=== PATIENT | female | born 1995 | race Caucasian/White ===

== ENCOUNTER 2016-06-28 03:56 | Emergency (ER) | payer BC, OTHER ==
[~2016-06-28 03:56] MED LIST: /VITACHEW PO; BENZ200C44 PO; CLON0.5T PO; DRON5CAP6 PO; IMPL68IM SC; LAMI25TA PO; No home meds; TOPI50TA4 PO
[2016-06-28 04:45] LABS: MEAN CORPUSCULAR HGB CONC 34.6 g/dl (32.0-36.5); MEAN CORPUSCULAR VOLUME 89.5 fl (80.0-96.0); RED CELL DISTRIBUTION WIDTH 12.7 % (11.5-14.5); WHITE BLOOD COUNT 14.3 K/mm3 (4.0-10.0)
[2016-06-28 04:52] LABS: CONTROL LINE HCG INT CTR LINE PRESENT
[2016-06-28 04:55] LABS: AMPHETAMINES LEVEL URINE NEGATIVE (NEGATIVE); BENZODIAZEPINES URINE NEGATIVE (NEGATIVE); COCAINE METABOLITE URINE NEGATIVE (NEGATIVE); METHADONE URINE NEGATIVE (NEGATIVE); OPIATES URINE NEGATIVE (NEGATIVE)
[2016-06-28 04:56] LABS: CONTROL LINE INT CTR LINE PRESENT; TRICYCLIC ANTIDEPRESS URINE NEGATIVE (NEGATIVE)
[2016-06-28 05:07] LABS: ALBUMIN 4.3 GM/DL (3.2-5.2); ALBUMIN/GLOBULIN RATIO 1.26 (1.00-1.93); ALKALINE PHOSPHATASE 119 U/L (45-117); ALT/SGPT 17 U/L (12-78); ANION GAP 12 MEQ/L (8-16); AST/SGOT 11 U/L (15-37); BILIRUBIN,DIRECT 0.1 MG/DL (0.0-0.2); BILIRUBIN,TOTAL 0.4 MG/DL (0.2-1.0); BLOOD UREA NITROGEN 9 MG/DL (7-18); CALCIUM LEVEL 9.1 MG/DL (8.5-10.1); CARBON DIOXIDE LEVEL 22 MEQ/L (21-32); CHLORIDE LEVEL 112 MEQ/L (98-107); CREATININE FOR GFR 0.83 MG/DL (0.55-1.02); GLOMERULAR FILTRATION RATE > 60.0 (>60); GLUCOSE, FASTING 102 MG/DL (70-105); POTASSIUM SERUM 3.6 MEQ/L (3.5-5.1); SODIUM LEVEL 146 MEQ/L (136-145); TOTAL PROTEIN 7.7 GM/DL (6.4-8.2)
--- NOTE | 2016-06-28 07:40 | EDDOCDS ---
Physician Documentation [facility] Name: Ashleigh Garcia Age: 21 yrs Sex: Female : 1995 Arrival Date: 06/28/2016 Time: 03:56 Bed BHU1 Private MD: Disposition: 06/28/16 06:22 Discharged to Home/Self Care. Impression: Alcohol abuse with intoxication, Inadequate social skills, not elsewhere classified, Problems related to social environment, Cannabis abuse. - Condition is Stable. - Medication Reconciliation, Local Pharmacy Hours form. - Follow up: As provided by PFS Referral list; When: Call to arrange an appointment; Reason: Recheck today's complaints. - Problem is an ongoing problem. - Symptoms have improved. Historical: - Allergies: No known drug Allergies; - Home Meds: 1. Adderall XR Oral once daily has been out x 3 months 2. Xanax Oral as needed has been out x 3 months - PMHx: ADHD; Anxiety; - PSHx: none; - Social history: Smoking status: Patient states was never smoker of tobacco. Patient uses alcohol reports drinking 3 liquor beverages tonight . No barriers to communication noted, The patient speaks fluent [place], Speaks appropriately for age. - Family history: Not pertinent. - : The pt / caregiver states he / she is not on anticoagulants. Home medication list is obtained from the patient. - Exposure Risk Screening:: None identified. 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 3 in. (160.02 cm); Pain 0/10; 07:28 BP 126 / 78; Pulse 110; Resp 18; Temp 98.0; Pulse Ox 98% ; Pain 5/10; hs1 04:04 Body Mass Index 20.37 (52.16 kg, 160.02 cm) jlm MDM: 04:40 Consult PFS/PSA/Cyber Incident Analyst ordered. slm 04:40 Consult PFS/PSA/Cyber Incident Analyst: Patient's case requires discussion with on-call slm Psychiatrist ordered. 04:40 PSA/PFS to call Nursing Personal Protection Specialist, to enter patient data on [place] Safe [place] if patient slm involuntarily admitted or transferred for SI or HI ordered. 04:40 Confirm accurate psychiatric medication list and times of last dosage ordered. slm 04:40 Detain Pt Until Medically/PFS Cleared ordered. slm 04:41 Acetaminophen Level Ordered. EDMS 04:41 Basic Metabolic Profile Ordered. EDMS 04:41 Complete Blood Count Ordered. EDMS 04:41 Drug Eval Toxicology ED Only Ordered. EDMS 04:41 Ethyl Alcohol (ethanol) Ordered. EDMS 04:41 Liver Profile Ordered. EDMS 04:41 Salicylate Level Ordered. EDMS 04:41 Thyroid Stimulating Hormone Ordered. EDMS 04:43 HCG,Serum Qualitative Ordered. EDMS 04:59 Complete Blood Count Reviewed. cs11 04:59 Drug Eval Toxicology ED Only Reviewed. cs11 04:59 HCG,Serum Qualitative Reviewed. cs11 05:07 REGULAR DIET PLASTIC EASTMAN+DIET ordered. EDMS 05:15 Financial registration complete. hs2 05:20 [facility] Payment Agreement was scanned into [employer] and attached to record. hs2 05:32 Acetaminophen Level Reviewed. cs11 05:32 Basic Metabolic Profile Reviewed. cs11 05:32 Ethyl Alcohol (ethanol) Reviewed. cs11 05:32 Liver Profile Reviewed. cs11 05:32 Salicylate Level Reviewed. cs11 05:32 Thyroid Stimulating Hormone Reviewed. cs11 07:12 Consult PFS/PSA/Cyber Incident Analyst complete. ca Signatures: Dispatcher [employer] EDMS Tresa Sandoval, PSA PSA ca Tequila Teran, RN RN hs1 Josef Pinto, DO cs11 Pina Larios LPN LPN slm Nunez, NikkoleRN RN nn1 Jazmin Pelaez, Reg Reg hs2 The chart was reviewed and I authenticate all verbal orders and agree with the evaluation and treatment provided.Attachments: 05:20 [facility] Payment Agreement hs2 MTDD
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
--- NOTE | 2016-06-30 08:41 | EDDOCDS ---
Physician Documentation [facility] Name: Ashleigh Garcia Age: 21 yrs Sex: Female : 1995 Arrival Date: 06/28/2016 Time: 03:56 Bed BHU1 Private MD: Disposition: 06/28/16 06:22 Discharged to Home/Self Care. Impression: Alcohol abuse with intoxication, Inadequate social skills, not elsewhere classified, Problems related to social environment, Cannabis abuse. - Condition is Stable. - Medication Reconciliation, Local Pharmacy Hours form. - Follow up: As provided by PFS Referral list; When: Call to arrange an appointment; Reason: Recheck today's complaints. - Problem is an ongoing problem. - Symptoms have improved. Historical: - Allergies: No known drug Allergies; - Home Meds: 1. Adderall XR Oral once daily has been out x 3 months 2. Xanax Oral as needed has been out x 3 months - PMHx: ADHD; Anxiety; - PSHx: none; - Social history: Smoking status: Patient states was never smoker of tobacco. Patient uses alcohol reports drinking 3 liquor beverages tonight . No barriers to communication noted, The patient speaks fluent [place]ese, Speaks appropriately for age. - Family history: Not pertinent. - : The pt / caregiver states he / she is not on anticoagulants. Home medication list is obtained from the patient. - Exposure Risk Screening:: None identified. 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 3 in. (160.02 cm); Pain 0/10; 07:28 BP 126 / 78; Pulse 110; Resp 18; Temp 98.0; Pulse Ox 98% ; Pain 5/10; hs1 04:04 Body Mass Index 20.37 (52.16 kg, 160.02 cm) jlm MDM: 04:40 Consult PFS/PSA/Armhole Presser ordered. slm 04:40 Consult PFS/PSA/Armhole Presser: Patient's case requires discussion with on-call slm Psychiatrist ordered. 04:40 PSA/PFS to call Nursing Oyster Grader, to enter patient data on [place] Safe [place] if patient slm involuntarily admitted or transferred for SI or HI ordered. 04:40 Confirm accurate psychiatric medication list and times of last dosage ordered. slm 04:40 Detain Pt Until Medically/PFS Cleared ordered. slm 04:41 Acetaminophen Level Ordered. EDMS 04:41 Basic Metabolic Profile Ordered. EDMS 04:41 Complete Blood Count Ordered. EDMS 04:41 Drug Eval Toxicology ED Only Ordered. EDMS 04:41 Ethyl Alcohol (ethanol) Ordered. EDMS 04:41 Liver Profile Ordered. EDMS 04:41 Salicylate Level Ordered. EDMS 04:41 Thyroid Stimulating Hormone Ordered. EDMS 04:43 HCG,Serum Qualitative Ordered. EDMS 04:59 Complete Blood Count Reviewed. cs11 04:59 Drug Eval Toxicology ED Only Reviewed. cs11 04:59 HCG,Serum Qualitative Reviewed. cs11 05:07 REGULAR DIET PLASTIC EASTMAN+DIET ordered. EDMS 05:15 Financial registration complete. hs2 05:20 [facility] Payment Agreement was scanned into [employer] and attached to record. hs2 05:32 Acetaminophen Level Reviewed. cs11 05:32 Basic Metabolic Profile Reviewed. cs11 05:32 Ethyl Alcohol (ethanol) Reviewed. cs11 05:32 Liver Profile Reviewed. cs11 05:32 Salicylate Level Reviewed. cs11 05:32 Thyroid Stimulating Hormone Reviewed. cs11 07:12 Consult PFS/PSA/Armhole Presser complete. ca 08:57 T-Sheet-- Draft Copy was scanned into [employer] and attached to record. [facility] Signatures: Dispatcher [employer] EDMS Tresa Sandoval, PSA PSA ca Tequila Teran RN RN hs1 Josef Pinto, DO DO cs11 Pina Larios LPN LPN slm Nunez, NikkoleRN RN nn1 Jazmin Pelaez, Reg Reg hs2 Zarina Abrams [facility] The chart was reviewed and I authenticate all verbal orders and agree with the evaluation and treatment provided.Attachments: 05:20 [facility] [place] Agreement hs2 08:57 T-Sheet-- Draft Copy [facility] Chart Complete MTDD
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
--- NOTE | 2016-06-30 08:41 | EDDOCDS ---
Physician Documentation [facility] Name: Ashleigh Garcia Age: 21 yrs Sex: Female : 1995 Arrival Date: 06/28/2016 Time: 03:56 Bed BHU1 Private MD: Disposition: 06/28/16 06:22 Discharged to Home/Self Care. Impression: Alcohol abuse with intoxication, Inadequate social skills, not elsewhere classified, Problems related to social environment, Cannabis abuse. - Condition is Stable. - Medication Reconciliation, Local Pharmacy Hours form. - Follow up: As provided by PFS Referral list; When: Call to arrange an appointment; Reason: Recheck today's complaints. - Problem is an ongoing problem. - Symptoms have improved. Historical: - Allergies: No known drug Allergies; - Home Meds: 1. Adderall XR Oral once daily has been out x 3 months 2. Xanax Oral as needed has been out x 3 months - PMHx: ADHD; Anxiety; - PSHx: none; - Social history: Smoking status: Patient states was never smoker of tobacco. Patient uses alcohol reports drinking 3 liquor beverages tonight . No barriers to communication noted, The patient speaks fluent Paraguayan, Speaks appropriately for age. - Family history: Not pertinent. - : The pt / caregiver states he / she is not on anticoagulants. Home medication list is obtained from the patient. - Exposure Risk Screening:: None identified. RN PEDIATRIC: 06/28 07:09 LMP 06/03/2016 mlb1 Vital Signs: 04:04 BP 142 / 88; Pulse 115; Resp 18; Temp 97; Pulse Ox 97% ; Weight 52.16 kg / 114.99 lbs; jlm Height 5 ft. 3 in. (160.02 cm); Pain 0/10; 07:28 BP 126 / 78; Pulse 110; Resp 18; Temp 98.0; Pulse Ox 98% ; Pain 5/10; hs1 04:04 Body Mass Index 20.37 (52.16 kg, 160.02 cm) jlm MDM: 04:40 Consult PFS/PSA/Machine Packaging Technician ordered. slm 04:40 Consult PFS/PSA/Machine Packaging Technician: Patient's case requires discussion with on-call slm Psychiatrist ordered. 04:40 PSA/PFS to call Nursing [employer] Portal Consultant, to enter patient data on [place] Safe Act if patient slm involuntarily admitted or transferred for SI or HI ordered. 04:40 Confirm accurate psychiatric medication list and times of last dosage ordered. slm 04:40 Detain Pt Until Medically/PFS Cleared ordered. slm 04:41 Acetaminophen Level Ordered. EDMS 04:41 Basic Metabolic Profile Ordered. EDMS 04:41 Complete Blood Count Ordered. EDMS 04:41 Drug Eval Toxicology ED Only Ordered. EDMS 04:41 Ethyl Alcohol (ethanol) Ordered. EDMS 04:41 Liver Profile Ordered. EDMS 04:41 Salicylate Level Ordered. EDMS 04:41 Thyroid Stimulating Hormone Ordered. EDMS 04:43 HCG,Serum Qualitative Ordered. EDMS 04:59 Complete Blood Count Reviewed. cs11 04:59 Drug Eval Toxicology ED Only Reviewed. cs11 04:59 HCG,Serum Qualitative Reviewed. cs11 05:07 REGULAR DIET PLASTIC EASTMAN+DIET ordered. EDMS 05:15 Financial registration complete. hs2 05:20 [facility] Payment Agreement was scanned into [employer] and attached to record. hs2 05:32 Acetaminophen Level Reviewed. cs11 05:32 Basic Metabolic Profile Reviewed. cs11 05:32 Ethyl Alcohol (ethanol) Reviewed. cs11 05:32 Liver Profile Reviewed. cs11 05:32 Salicylate Level Reviewed. cs11 05:32 Thyroid Stimulating Hormone Reviewed. cs11 07:12 Consult PFS/PSA/Machine Packaging Technician complete. ca 08:57 T-Sheet-- Draft Copy was scanned into [employer] and attached to record. [facility] Signatures: Dispatcher [employer] EDMS Tresa Sandoval, PSA PSA ca Tequila Teran RN RN hs1 Josef Pinto, DO DO cs11 Pina Larios LPN LPN slm Nunez, NikkoleRN RN nn1 Jazmin Pelaez, Reg Reg hs2 Zarina [address] [facility] The chart was reviewed and I authenticate all verbal orders and agree with the evaluation and treatment provided.Attachments: 05:20 [place] [place] hs2 08:57 T-Sheet-- Draft Copy [facility] Chart Complete MTDD
== END 2016-06-28 07:39 | disposition home or self-care (01) ==
LOC: M ED 03:56
DX: F10.120 Alcohol abuse with intoxication, uncomplicated (principal); F12.10 Cannabis abuse, uncomplicated; Z73.4 Inadequate social skills, not elsewhere classified; Z60.9 Problem related to social environment, unspecified; F90.9 Attention-deficit hyperactivity disorder, unspecified type; F41.9 Anxiety disorder, unspecified; Z79.899 Other long term (current) drug therapy
CPT/HCPCS: 36415; 80048; 80076; 80306; 84443; 84703; 85027; 99284; G0480

== ENCOUNTER → 2016-08-17 | Outpatient (REF) | payer OTHER | LOC: M LAB REF 16:27 | PROVIDERS: ATTEND Physician Assistant | DX: J10.1 Influenza due to other identified influenza virus with other respiratory manifestations (principal) ==

== ENCOUNTER 2016-09-10 09:13 | Emergency (ER) | payer OTHER ==
[~2016-09-10] VITALS: Ht 160 cm; Wt 54.0 kg
[2016-09-10] MEDS ORDERED: traMADol 50 MG TAB PO ONE (09:45)
[2016-09-10] MEDS ORDERED: traMADol 50 MG TAB (BULK 4 TAB ED) PO ONE (09:45)
[2016-09-10] MEDS ORDERED: NAPR500T PO (10:19)
[2016-09-10] MEDS ORDERED: AUGM875T27 PO (10:19)
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
[2016-09-10 10:47] VITALS: BP 132/72
== END 2016-09-10 11:23 | disposition home or self-care (01) ==
LOC: M ED 10:06
DX: S67.01XA Crushing injury of right thumb, initial encounter (principal); W22.8XXA Striking against or struck by other objects, initial encounter; Y92.89 Other specified places as the place of occurrence of the external cause; Y93.89 Activity, other specified; Y99.8 Other external cause status; G43.A0 Cyclical vomiting, in migraine, not intractable; Z87.440 Personal history of urinary (tract) infections; F60.3 Borderline personality disorder

== ENCOUNTER 2016-11-05 15:26 | Emergency (ER) | payer OTHER ==
[~2016-11-05] VITALS: Ht 160 cm; Wt 49.9 kg
[~2016-11-05 15:26] MED LIST changes: +AUGM875T27 PO; +NAPR500T PO
[2016-11-05] MEDS ORDERED: NS 1,000 ML IV ONE (15:45)
[2016-11-05] MEDS ORDERED: ONDANSETRON 4 MG ORAL DISINTEGRATING TAB (S0181) PO ONE (15:45)
[2016-11-05] MEDS ORDERED: ACETAMINOPHEN TAB 650MG DOSE (2X325MG) PO ONE (15:45)
[2016-11-05 16:36] LABS: BASO % 0.5 % (0.0-1.0); EOS # 0.2 K/mm3 (0.0-0.50); EOS % 1.9 % (0.0-3.0); LARGE UNSTAINED CELL # 0.2 K/mm3 (0.0-0.4); LYMPH # 1.5 K/mm3 (1.5-6.5); LYMPH % 18.3 % (24.0-44.0); MEAN CORPUSCULAR HEMOGLOBIN 32.3 pg (27.0-33.0); MEAN CORPUSCULAR HGB CONC 35.2 g/dl (32.0-36.5); MEAN CORPUSCULAR VOLUME 91.9 fl (80.0-96.0); MONO # 0.4 K/mm3 (0.0-0.8); MONO % 5.4 % (0.0-5.0); NEUTROPHILS # 5.8 K/mm3 (1.8-7.7); NEUTROPHILS % 71.8 % (36.0-66.0); PLATELET COUNT, AUTOMATED 298 k/mm3 (150-450); RED CELL DISTRIBUTION WIDTH 12.3 % (11.5-14.5)
--- NOTE | 2016-11-05 16:51 | REP ---
Clinical: Dating and viability. Vaginal bleeding. Technique: Transabdominal first trimester obstetrical ultrasound with color Doppler evaluation. Findings: The uterus appears heterogeneous and enlarged measuring greater than 10.7 x 7.9 x 5.2 cm. Single live early intrauterine is appreciated. Gestational sac with yolk sac and pole identified. Buhl-rump length of 3 mm corresponds to 5 weeks 6 days gestational age with estimated date of delivery 07/02/2017 . heart rate equals 104 beats per minute. No gross abnormalities are identified. Impression: Single live early intrauterine at 5 weeks 6 days gestational age. Complete anatomical assessment should be performed and 19-20 weeks. Signed by Will Van MD 11/05/2016 04:43 P
[2016-11-05 17:14] VITALS: BP 130/76
== END 2016-11-05 17:15 | disposition home or self-care (01) ==
LOC: M ED 16:05
DX: O20.0 Threatened abortion (principal); Z3A.01 Less than 8 weeks gestation of pregnancy

== ENCOUNTER 2017-01-31 08:19 | Emergency (ER) | payer OTHER ==
[~2017-01-31] VITALS: Ht 160 cm; Wt 54.0 kg
[~2017-01-31 08:19] MED LIST changes: -AUGM875T27 PO; +AUGM875T28 PO; -BENZ200C44 PO; +BENZ200C53 PO; -TOPI50TA4 PO; +TOPI50TA9 PO
[2017-01-31 08:28] VITALS: BP 120/90
[2017-01-31] MEDS ORDERED: FLUO20CA19 (08:32)
[2017-01-31] MEDS ORDERED: METR1GEL7 PV (16:22)
--- NOTE | 2017-02-01 14:01 | REP ---
PELVIC SONOGRAPHY: HISTORY: Pelvic pain, nausea and vomiting, status post dilation and curettage. FINDINGS: Transabdominal and transvaginal scanning are performed. Uterine dimensions are 10.0 x 4.8 x 7.0 cm. Uterus is retroverted. Visualized bladder thompson are smooth. No focal uterine mass is seen. Endometrial echo 0.9 cm thick and centrally placed. No free fluid is seen. A normal left ovary is seen with dimensions of 3.4 x 2.0 x 1.5 cm. Right ovary dimensions are 2.7 x 2.8 x 2.4 cm. There is a follicle cyst in the right ovary measuring 2.4 cm in greatest diameter. Ovarian Doppler flow is normal bilaterally. IMPRESSION: Retroverted, retroflexed uterus. 2.4 cm follicle cyst right ovary. Otherwise negative pelvic sonography. Signed by Rodolfo Duong MD 02/01/2017 03:05 P
== END 2017-01-31 10:16 | disposition left against medical advice (07) ==
LOC: M ED 08:19
DX: R10.2 Pelvic and perineal pain (principal); N93.9 Abnormal uterine and vaginal bleeding, unspecified

== ENCOUNTER 2017-01-31 14:24 | Emergency (ER) | payer OTHER ==
[~2017-01-31] VITALS: Ht 160 cm; Wt 54.5 kg
[~2017-01-31 14:24] MED LIST changes: +FLUO20CA19
[2017-01-31 15:50] LABS: BASO % 0.7 % (0.0-1.0); EOS # 0.1 K/mm3 (0.0-0.50); EOS % 0.8 % (0.0-3.0); LARGE UNSTAINED CELL # 0.2 K/mm3 (0.0-0.4); LARGE UNSTAINED CELL % 2.7 % (0.0-4.0); LYMPH # 1.6 K/mm3 (1.5-6.5); LYMPH % 18.8 % (24.0-44.0); MEAN CORPUSCULAR HEMOGLOBIN 32.4 pg (27.0-33.0); MEAN CORPUSCULAR VOLUME 92.5 fl (80.0-96.0); MONO # 0.5 K/mm3 (0.0-0.8); MONO % 7.1 % (0.0-5.0); NEUTROPHILS # 5.2 K/mm3 (1.8-7.7); NEUTROPHILS % 69.9 % (36.0-66.0); PLATELET COUNT, AUTOMATED 274 k/mm3 (150-450); RED CELL DISTRIBUTION WIDTH 12.7 % (11.5-14.5); WHITE BLOOD COUNT 7.4 K/mm3 (4.0-10.0)
[2017-01-31 16:11] LABS: ALBUMIN 3.9 GM/DL (3.2-5.2); ALBUMIN/GLOBULIN RATIO 1.11 (1.00-1.93); ALKALINE PHOSPHATASE 103 U/L (45-117); ALT/SGPT 15 U/L (12-78); ANION GAP 5 MEQ/L (8-16); AST/SGOT 9 U/L (15-37); BILIRUBIN,TOTAL 0.5 MG/DL (0.2-1.0); BLOOD UREA NITROGEN 9 MG/DL (7-18); CALCIUM LEVEL 8.9 MG/DL (8.5-10.1); CARBON DIOXIDE LEVEL 30 MEQ/L (21-32); CHLORIDE LEVEL 107 MEQ/L (98-107); CREATININE FOR GFR 0.73 MG/DL (0.55-1.02); GLOMERULAR FILTRATION RATE > 60.0 (>60); GLUCOSE, FASTING 89 MG/DL (70-105); POTASSIUM SERUM 4.4 MEQ/L (3.5-5.1); SODIUM LEVEL 142 MEQ/L (136-145); TOTAL PROTEIN 7.4 GM/DL (6.4-8.2)
[2017-01-31] MEDS ORDERED: METR1GEL7 PV (16:22)
[2017-01-31] MEDS ORDERED: metroNIDAZOLE 70 GM VAGINAL GEL PV ONE (16:30)
[2017-01-31 16:36] VITALS: BP 123/69
== END 2017-01-31 16:43 | disposition home or self-care (01) ==
LOC: M ED 14:24
DX: N76.0 Acute vaginitis (principal); Z87.440 Personal history of urinary (tract) infections; F60.3 Borderline personality disorder

== ENCOUNTER 2017-06-26 12:54 | Emergency (ER) | payer OTHER ==
[2017-06-26 13:40] LABS: KETONE, URINE AUTO RFX 2+ mg/dL (NEGATIVE); LEUKOCYTE ESTERASE UR AUTO RFX NEGATIVE (NEGATIVE); MUCUS, URINE RFX SMALL (NEGATIVE); NITRITE, URINE AUTO RFX NEGATIVE (NEGATIVE); RBC, URINE AUTO RFX 1 /HPF (0-3); SPECIFIC GRAVITY UR AUTO RFX 1.025 (1.002-1.035); SQUAM EPITHELIAL CELL UR AURFX 7 /HPF (0-6); WBC, URINE AUTO RFX 2 /HPF (0-3)
[2017-06-26] MEDS: METOCLOPRAMIDE INJ 10MG/2ML VIAL (J2765) IV (14:02)
[2017-06-26] MEDS: NS 1,000 ML IV (14:15)
== END 2017-06-26 15:39 | disposition home or self-care (01) ==
LOC: M ED 12:54
DX: O21.9 Vomiting of pregnancy, unspecified (principal); Z3A.12 12 weeks gestation of pregnancy; O99.351 Diseases of the nervous system complicating pregnancy, first trimester; G43.A0 Cyclical vomiting, in migraine, not intractable
CPT/HCPCS: J2765

== ENCOUNTER 2017-10-23 10:04 | Emergency (ER) | payer OTHER | END 2017-10-23 10:53 | disposition home or self-care (01) | LOC: M ED 10:04 | DX: O99.512 Diseases of the respiratory system complicating pregnancy, second trimester (principal); Z3A.28 28 weeks gestation of pregnancy; Z79.899 Other long term (current) drug therapy | CPT/HCPCS: 99283 ==

== ENCOUNTER 2017-10-29 13:47 | Emergency (ER) | payer OTHER | END 2017-10-29 16:35 | disposition left against medical advice (07) | LOC: M ED 13:47 | DX: R07.81 Pleurodynia (principal); Z53.21 Procedure and treatment not carried out due to patient leaving prior to being seen by health care provider ==

== ENCOUNTER 2017-11-27 18:34 | Outpatient (CLI) | payer OTHER ==
[2017-11-27] MEDS ORDERED: ONDANSETRON 4MG/2ML VIAL (J2405) IV (19:15)
[2017-11-27] MEDS: LR IV (20:04)
[2017-11-27] MEDS: ONDANSETRON IV (20:04)
== END 2017-11-27 22:03 | disposition home or self-care (01) ==
LOC: M LDO 18:34
DX: O21.8 Other vomiting complicating pregnancy (principal); Z3A.33 33 weeks gestation of pregnancy
CPT/HCPCS: J2405

== ENCOUNTER 2017-12-26 01:23 | Inpatient (IN) | payer OTHER ==
[2017-12-26] MEDS: LR 1,000 ML IV ×2 (01:57→09:54)
[2017-12-26] MEDS: LACTATED RINGER'S 1000 ML IV (01:57)
[2017-12-26] MEDS ORDERED: FENTANYL 2MCG/ML ROPIVACAINE 0.2% IN 0.9% NACL 200ML IVBAG As Ordered (02:09)
[2017-12-26 02:17] LABS: HEMOGLOBIN 12.5 g/dl (12.0-15.5); MEAN CORPUSCULAR HEMOGLOBIN 30.3 pg (27.0-33.0); MEAN CORPUSCULAR HGB CONC 33.8 g/dl (32.0-36.5); MEAN CORPUSCULAR VOLUME 89.8 fl (80.0-96.0); PLATELET COUNT, AUTOMATED 253 10^3/uL (150-450); RED BLOOD COUNT 4.12 10^6/uL (4.00-5.40); RED CELL DISTRIBUTION WIDTH 12.6 % (11.5-14.5); WHITE BLOOD COUNT 8.8 10^3/uL (4.0-10.0)
[2017-12-26] MEDS ORDERED: ONDANSETRON 4MG/2ML VIAL (J2405) IV (02:57)
[2017-12-26] MEDS ORDERED: ePHEDrine SULFATE 25 MG/5 ML(5MG/ML) SYRINGE IV (02:57)
[2017-12-26] MEDS ORDERED: FENTANYL/ROPIVACAINE/NACL BAG 200 ML EPIDURAL (02:57)
[2017-12-26] MEDS ORDERED: LACTATED RINGER'S 1000 ML IV (02:57)
[2017-12-26] MEDS ORDERED: diphenhydrAMINE INJ 50MG/ML VIAL (J1200) IV (02:57)
[2017-12-26] MEDS ORDERED: REFRIGERATOR IV KEYS XX (02:57)
[2017-12-26] MEDS ORDERED: NALOXONE INJ 0.4 MG/1 ML VIAL (J2310) IV (02:57)
[2017-12-26] MEDS ORDERED: EPIDURAL/PCA KEYS XX (02:57)
[2017-12-26] MEDS ORDERED: EPIDURAL COMMENT XX (02:57)
[2017-12-26] MEDS ORDERED: OXYTOCIN 30 UNITS IN 0.9% NaCl 500ML IV BAG (J2590) As Ordered (03:02)
[2017-12-26] MEDS: OXYTOCIN INJ 10 UNITS/ML VIAL (J2590) IM (04:04)
[2017-12-26] MEDS ORDERED: DIBUCAINE 1% OINTMENT 30GM TOP (04:45)
[2017-12-26] MEDS ORDERED: DOCUSATE SODIUM 100 MG CAP PO (04:45)
[2017-12-26] MEDS: LIDOCAINE 1% MDV 20ML VIAL INFIL (04:45)
[2017-12-26] MEDS: IBUPROFEN 800 MG TAB PO ×2 (09:16→17:58)
[2017-12-26] MEDS: PRENATAL VITAMINS CHEWABLE TABLET PO (09:16)
[2017-12-26] MEDS: METOCLOPRAMIDE 10 MG TAB PO (12:40)
[2017-12-26] MEDS: ACETAMINOPHEN 500 MG TAB PO (12:40)
[2017-12-26] MEDS: MEASLES,MUMPS,RUBELLA VACCINE INJ (MMR-II) (90707) SC (13:32)
[2017-12-26] MEDS: RHOGAM 300 MCG (1500 IU) INJ (J2790) IM (13:32)
[2017-12-26] MEDS: OMEPRAZOLE 20 MG CAP PO (18:41)
[2017-12-27] MEDS: PRENATAL VITAMINS CHEWABLE TABLET PO (08:53)
== END 2017-12-27 11:35 | disposition home or self-care (01) | DRG 775 ==
LOC: M LDO 01:23 → M LDI 02:01 → M OBS 06:35
PROC: 10E0XZZ Delivery of Products of Conception, External Approach (ICD-10-PCS; principal; 2017-12-26)
PROC: 0HQ9XZZ Repair Perineum Skin, External Approach (ICD-10-PCS; 2017-12-26)
DX: O34.211 Maternal care for low transverse scar from previous cesarean delivery (principal); Z3A.37 37 weeks gestation of pregnancy; O69.81X0 Labor and delivery complicated by cord around neck, without compression, not applicable or unspecified; O70.0 First degree perineal laceration during delivery; Z37.0 Single live birth

== ENCOUNTER → 2018-03-16 | Outpatient (REF) | payer OTHER | LOC: M SFHCLERA 10:33 | DX: J02.9 Acute pharyngitis, unspecified (principal) ==

== ENCOUNTER → 2018-03-30 | Outpatient (REF) | payer OTHER ==
[2018-03-30 21:44] LABS: CHLAMYDIA DNA AMPLIFICATION NEGATIVE (NEGATIVE); GC DNA AMPLIFICATION NEGATIVE (NEGATIVE)
== END ==
LOC: M SFHCLERA 13:52
DX: N39.0 Urinary tract infection, site not specified (principal)
CPT/HCPCS: 87186

== ENCOUNTER 2021-01-20 17:52 | Emergency (ER) | payer OTHER ==
[~2021-01-20] VITALS: Ht 160 cm; Wt 77.3 kg
[~2021-01-20 17:52] MED LIST changes: -/VITACHEW PO; +BENA25TA10 PO; -BENZ200C53 PO; +BENZ200C70 PO; -CLON0.5T PO; +CLON0.5T2 PO; +COLA100C5 PO; +DRON5CAP13 PO; -DRON5CAP6 PO; +FLIN1CHW3 PO; -FLUO20CA19; +FLUO20CA22; +GUAI100L6 PO; +IBUP-1114 PO; +MAPA500T2 PO; +METR1GEL7 PV; +NAPR-837 PO; -NAPR500T PO; +PREN29TA4 PO; +PRENTAB55 PO; +REGL10TA6 PO
[2021-01-20] MEDS ORDERED: HYDR1CAP25 (18:27)
[2021-01-20] MEDS ORDERED: VENL150C43 (18:27)
[2021-01-20] MEDS ORDERED: ZOLP12.518 (18:27)
[2021-01-20] MEDS ORDERED: OLAN1TAB20 (18:27)
[2021-01-20 18:50] LABS: HEMATOCRIT 40.6 % (36.0-47.0); MEAN CORPUSCULAR HEMOGLOBIN 29.2 pg (27.0-33.0); MEAN CORPUSCULAR HGB CONC 34.5 g/dl (32.0-36.5); MEAN CORPUSCULAR VOLUME 84.6 fl (80.0-96.0); PLATELET COUNT, AUTOMATED 286 10^3/uL (150-450); WHITE BLOOD COUNT 7.9 10^3/uL (4.0-10.0)
[2021-01-20 19:23] LABS: HCG, SERUM QUALITATIVE NEGATIVE (NEGATIVE)
[2021-01-20 19:24] LABS: AMPHETAMINES LEVEL URINE NEGATIVE (NEGATIVE); BARBITURATES URINE NEGATIVE (NEGATIVE); BENZODIAZEPINES URINE NEGATIVE (NEGATIVE); CANNABINOIDS URINE POSITIVE (NEGATIVE); COCAINE METABOLITE URINE NEGATIVE (NEGATIVE); METHADONE URINE NEGATIVE (NEGATIVE); OPIATES URINE NEGATIVE (NEGATIVE); PHENCYCLIDINE URINE NEGATIVE (NEGATIVE)
[2021-01-20] MEDS ORDERED: ZOLP12.518 PO (19:27)
[2021-01-20] MEDS ORDERED: ZYPR10TA PO (19:27)
[2021-01-20] MEDS ORDERED: VENL150C43 PO (19:27)
[2021-01-20] MEDS ORDERED: VIST25CA PO (19:27)
[2021-01-20] MEDS ORDERED: HOME MED LIST COMPLETE! XX SCH (19:30)
[2021-01-20 19:33] LABS: ACETAMINOPHEN LEVEL < 2.0 UG/ML (10.0-30.0); ALBUMIN 3.7 GM/DL (3.2-5.2); ALT/SGPT 21 U/L (12-78); BILIRUBIN,DIRECT < 0.1 MG/DL (0.0-0.2); BILIRUBIN,TOTAL 0.3 MG/DL (0.2-1.0); BLOOD UREA NITROGEN 10 MG/DL (7-18); CALCIUM LEVEL 8.9 MG/DL (8.5-10.1); CARBON DIOXIDE LEVEL 25 MEQ/L (21-32); CHLORIDE LEVEL 113 MEQ/L (98-107); CREATININE FOR GFR 0.71 MG/DL (0.55-1.30); ETHYL ALCOHOL (ETHANOL) < 0.003 % (0.000-0.010); GLOMERULAR FILTRATION RATE > 60.0 (>60); GLUCOSE, FASTING 85 MG/DL (70-100); POTASSIUM SERUM 3.3 MEQ/L (3.5-5.1); SALICYLATE LEVEL < 1.7 MG/DL (5.0-30.0); SODIUM LEVEL 144 MEQ/L (136-145); TOTAL PROTEIN 6.9 GM/DL (6.4-8.2)
[2021-01-20 22:05] VITALS: BP 131/58
== END 2021-01-20 22:07 | disposition home or self-care (01) ==
LOC: M ED 17:52
DX: F43.20 Adjustment disorder, unspecified (principal); F41.9 Anxiety disorder, unspecified; J30.2 Other seasonal allergic rhinitis; F17.210 Nicotine dependence, cigarettes, uncomplicated; F12.20 Cannabis dependence, uncomplicated

== ENCOUNTER → 2021-04-10 | Outpatient (CLI) | payer OTHER ==
[~2021-04-10] MED LIST changes: +HYDR1CAP25; +OLAN1TAB20; +VENL150C43; +VENL150C43 PO; +VIST25CA PO; +ZOLP12.518; +ZOLP12.518 PO; +ZYPR10TA PO
--- NOTE | 2021-04-10 13:13 | REP ---
INDICATION: POLYP OF GALLBLADDER, DIVERTICULUM OF BLADDER. COMPARISON: None. TECHNIQUE: Real-time sonographic evaluation of the urinary bladder transvesically with Doppler FINDINGS: The pre void urinary bladder volume calculation is 106.7 cc and the postvoid urinary bladder volume calculation is 12 cc. This renders and 11.2 % postvoid residual. No gross urinary bladder abnormalities were identified. Doppler of the UV junction shows uro jet phenomena bilaterally. IMPRESSION: Findings as described above. No urinary bladder diverticulum or other abnormality was identified. <Electronically signed by Jose Pride > 04/10/21 [id number]
--- NOTE | 2021-04-10 15:23 | REP ---
INDICATION: POLYP OF GALLBLADDER, DIVERTICULUM OF BLADDER. COMPARISON: Multiple TECHNIQUE: Real-time sonographic evaluation of the right upper quadrant with Doppler FINDINGS: Multiple ultrasonographic images of the liver show the hepatic parenchymal echo texture to appear unremarkable. There are no focal masses. There is no intrahepatic ductal dilatation. The common bile duct measures approximately 4 mm in its greatest transverse dimension. Multiple ultrasonographic images of the gallbladder show no focal or diffuse gallbladder wall thickening. There are no echogenic foci within the gallbladder lumen, which casts acoustic shadows. There is no pericholecystic edema. Seen adherent to the posterior gallbladder wall there is a mm sized echogenic focus which does not cast comet tail artifact or an acoustic shadow. Other gallbladder wall echogenic foci seen on prior exams are not seen today. Images of the pancreatic region show no gross abnormality. The imaged portion of the right kidney is unremarkable. IMPRESSION: Possible tiny gallbladder wall polyp as described above. Six-month follow-up is suggested. Accredited by the [employer] in General Ultrasound. <Electronically signed by Jose Pride > 04/10/21 [id number]
== END ==
LOC: M RAD 09:06
PROVIDERS: ATTEND Physician Assistant
DX: N32.3 Diverticulum of bladder (principal)

== ENCOUNTER → 2021-07-25 | Outpatient (CLI) | payer OTHER | LOC: M RAD 13:19 | PROVIDERS: ATTEND Physician Assistant | DX: N93.9 Abnormal uterine and vaginal bleeding, unspecified (principal) ==

== ENCOUNTER 2021-08-13 06:40 | Emergency (ER) | payer OTHER ==
[~2021-08-13] VITALS: Ht 160 cm; Wt 59.1 kg
[2021-08-13] MEDS ORDERED: KETOROLAC TROMETHAMINE 10 MG TAB PO ONE (07:10)
[2021-08-13 07:27] LABS: BASO # 0.1 10^3/uL (0.0-0.2); BASO % 0.7 % (0.0-1.0); EOS # 0.1 10^3/uL (0.0-0.5); EOS % 1.3 % (0.0-3.0); LYMPH # 1.2 10^3/uL (1.5-5.0); LYMPH % 14.2 % (24.0-44.0); MEAN CORPUSCULAR HEMOGLOBIN 29.7 pg (27.0-33.0); MEAN CORPUSCULAR HGB CONC 33.3 g/dl (32.0-36.5); MEAN CORPUSCULAR VOLUME 89.1 fl (80.0-96.0); MONO # 0.6 10^3/uL (0.0-0.8); MONO % 7.2 % (2.0-8.0); NEUTROPHILS # 6.3 10^3/uL (1.5-8.5); NEUTROPHILS % 76.2 % (36.0-66.0); PLATELET COUNT, AUTOMATED 331 10^3/uL (150-450); RED BLOOD COUNT 5.05 10^6/uL (4.00-5.40); WHITE BLOOD COUNT 8.2 10^3/uL (4.0-10.0)
[2021-08-13 07:57] LABS: ALBUMIN 3.9 GM/DL (3.2-5.2); ALT/SGPT 18 U/L (12-78); BILIRUBIN,TOTAL 0.4 MG/DL (0.2-1.0); BLOOD UREA NITROGEN 12 MG/DL (7-18); CARBON DIOXIDE LEVEL 25 MEQ/L (21-32); CHLORIDE LEVEL 112 MEQ/L (98-107); CREATININE FOR GFR 0.71 MG/DL (0.55-1.30); GLOMERULAR FILTRATION RATE > 60.0 (>60); GLUCOSE, FASTING 90 MG/DL (70-100); SODIUM LEVEL 142 MEQ/L (136-145); TOTAL PROTEIN 7.2 GM/DL (6.4-8.2)
[2021-08-13 08:10] LABS: BILIRUBIN, URINE MANUAL OBSCURED (NEGATIVE); GLUCOSE, URINE (UA) MANUAL NEGATIVE (NEGATIVE); KETONE, URINE MANUAL OBSCURED mg/dL (NEGATIVE); UROBILINOGEN, URINE MANUAL OBSCURED mg/dl (NORMAL)
[2021-08-13 08:11] LABS: RBC, URINE TNTC /hpf (0-3); SQUAMOUS EPITHELIAL CELL URINE SMALL AMOUNT /hpf (SMALL AMT)
[2021-08-13 08:13] LABS: BACTERIA, URINE SMALL AMOUNT; HYALINE CAST, URINE NONE SEEN /lpf (0-1); MUCUS, URINE SMALL AMOUNT (NEGATIVE)
[2021-08-13] MEDS ORDERED: KETO10TAB PO (08:30)
[2021-08-13] MEDS ORDERED: PYRI1TAB5 PO (08:31)
[2021-08-13 08:36] VITALS: BP 131/79
[2021-08-13] MEDS ORDERED: BACT800T5 PO (08:42)
== END 2021-08-13 08:50 | disposition home or self-care (01) ==
LOC: M ED 06:40
DX: N30.91 Cystitis, unspecified with hematuria (principal); R10.2 Pelvic and perineal pain; F31.9 Bipolar disorder, unspecified; F17.200 Nicotine dependence, unspecified, uncomplicated; J30.2 Other seasonal allergic rhinitis

== ENCOUNTER → 2021-10-20 | Outpatient (CLI) | payer OTHER ==
[~2021-10-20] MED LIST changes: +BACT800T5 PO; +KETO10TAB PO; +PYRI1TAB5 PO
== END ==
LOC: M WHC 07:23
PROVIDERS: ATTEND Physician Assistant
DX: K82.4 Cholesterolosis of gallbladder (principal)

== ENCOUNTER → 2021-10-23 | Outpatient (CLI) | payer OTHER | LOC: M WHC 12:08 | PROVIDERS: ATTEND Physician Assistant | DX: N93.9 Abnormal uterine and vaginal bleeding, unspecified (principal) ==

== ENCOUNTER 2021-12-02 06:52 | Emergency (ER) | payer OTHER ==
[~2021-12-02] VITALS: Ht 160 cm; Wt 63.3 kg
[2021-12-02 08:02] LABS: BASO # 0.1 10^3/uL (0.0-0.2); BASO % 0.7 % (0.0-1.0); EOS # 0.1 10^3/uL (0.0-0.5); EOS % 0.8 % (0.0-3.0); HEMOGLOBIN 13.6 g/dl (12.0-15.5); LYMPH # 1.2 10^3/uL (1.5-5.0); LYMPH % 13.6 % (24.0-44.0); MEAN CORPUSCULAR HEMOGLOBIN 30.1 pg (27.0-33.0); MEAN CORPUSCULAR VOLUME 88.5 fl (80.0-96.0); MONO # 0.4 10^3/uL (0.0-0.8); MONO % 4.8 % (2.0-8.0); NEUTROPHILS # 6.9 10^3/uL (1.5-8.5); NEUTROPHILS % 79.8 % (36.0-66.0); PLATELET COUNT, AUTOMATED 287 10^3/uL (150-450); RED BLOOD COUNT 4.52 10^6/uL (4.00-5.40); WHITE BLOOD COUNT 8.7 10^3/uL (4.0-10.0)
[2021-12-02] MEDS ORDERED: NS 1,000 ML IV ONE (08:10)
[2021-12-02] MEDS ORDERED: KETOROLAC 30 MG/ML 1ML VIAL IV ONE (08:10)
[2021-12-02 08:18] LABS: ALBUMIN 3.9 GM/DL (3.2-5.2); BILIRUBIN,DIRECT 0.1 MG/DL (0.0-0.2); BILIRUBIN,TOTAL 0.4 MG/DL (0.2-1.0)
[2021-12-02] MEDS ORDERED: MIRA3350 PO (10:17)
[2021-12-02] MEDS ORDERED: COLA100C5 PO (10:17)
[2021-12-02] MEDS ORDERED: ONDA4TAB6 PO (10:17)
[2021-12-02 10:29] VITALS: BP 112/72
[2021-12-02 20:23] LABS: GC DNA AMPLIFICATION NEGATIVE (NEGATIVE)
== END 2021-12-02 10:31 | disposition home or self-care (01) ==
LOC: M ED 06:52
DX: K59.00 Constipation, unspecified (principal); J30.2 Other seasonal allergic rhinitis; R11.15 Cyclical vomiting syndrome unrelated to migraine; Z79.899 Other long term (current) drug therapy
CPT/HCPCS: 74018; 76856; 80047; 80076; 81001; 83690; 84702; 85025; 87661; 87810; 87850; 93976; 96361; 96374; 99284; J1885

== ENCOUNTER 2022-02-26 09:43 | Emergency (ER) | payer OTHER ==
[~2022-02-26] VITALS: Ht 160 cm; Wt 59.0 kg
[~2022-02-26 09:43] MED LIST changes: +MIRA3350 PO; +ONDA4TAB6 PO
[2022-02-26 09:44] VITALS: BP 118/70
[2022-02-26] MEDS ORDERED: AMPH1TAB2 (10:14)
[2022-02-26] MEDS ORDERED: HYDR50TA70 (10:14)
== END 2022-02-26 12:03 | disposition left against medical advice (07) ==
LOC: M ED 09:43
DX: Z53.21 Procedure and treatment not carried out due to patient leaving prior to being seen by health care provider (principal)

== ENCOUNTER 2022-11-20 18:57 | Inpatient (IN) | payer OTHER ==
[~2022-11-20] VITALS: Ht 160 cm; Wt 70.5 kg
[~2022-11-20 18:57] MED LIST changes: +AMPH1TAB2; +HYDR50TA70; +TOPI-254 PO; -TOPI50TA9 PO
[2022-11-20 19:16] VITALS: BP 126/70
[2022-11-20] MEDS ORDERED: LACTATED RINGER'S 1000 ML IV STA (22:08)
[2022-11-20] MEDS ORDERED: TRANEXAMIC ACID INJection 1,000 MG in NS 100 ML IV PRN (22:10)
[2022-11-20] MEDS ORDERED: CARBOPROST TROMETHAMINE 250 MCG/ML AMP IM PRN (22:10)
[2022-11-20] MEDS ORDERED: BICITRA 30ML SOLN UDC PO ONE (22:10)
[2022-11-20] MEDS ORDERED: LR 1,000 ML IV SCH (22:10)
[2022-11-20] MEDS ORDERED: METHYLERGONOVINE MALEATE 0.2MG/ML 1ML VIAL IM PRN (22:10)
[2022-11-20] MEDS ORDERED: OXYTOCIN DRIP 30 UNITS in IV 1 EA IV PRN (22:10)
[2022-11-20] MEDS ORDERED: ceFAZolin SOD 2 GM in IV 1 EA IV ONE (22:10)
[2022-11-20 22:32] LABS: HEMATOCRIT 35.1 % (36.0-47.0); HEMOGLOBIN 12.2 g/dl (12.0-15.5); MEAN CORPUSCULAR HEMOGLOBIN 30.8 pg (27.0-33.0); MEAN CORPUSCULAR HGB CONC 34.8 g/dl (32.0-36.5); MEAN CORPUSCULAR VOLUME 88.6 fl (80.0-96.0); PLATELET COUNT, AUTOMATED 258 10^3/uL (150-450); RED BLOOD COUNT 3.96 10^6/uL (4.00-5.40)
[2022-11-20] MEDS ORDERED: METOCLOPRAMIDE INJ 10MG/2ML VIAL IV STA (22:32)
[2022-11-20] MEDS ORDERED: OXYTOCIN 30UNITS IN 0.9% NaCl 500ML IV BAG As Ordered ONE (23:39)
[2022-11-21] MEDS ORDERED: MORPHINE PRES-FREE INJ 10 MG/10 ML VIAL As Ordered ONE (00:18)
[2022-11-21] MEDS ORDERED: GLYCOPYRROLATE INJ 0.2 MG/ML 2 ML VIAL As Ordered ONE (00:35)
[2022-11-21] MEDS ORDERED: ONDANSETRON 4MG 2ML VIAL As Ordered ONE (00:45)
[2022-11-21] MEDS ORDERED: KETOROLAC 60MG 2ML VIAL As Ordered ONE (01:02)
[2022-11-21] MEDS ORDERED: SIMETHICONE 80MG CHEW TAB PO PRN (01:45)
[2022-11-21] MEDS ORDERED: ONDANSETRON 4MG 2ML VIAL IV PRN ×2 (01:45→03:20)
[2022-11-21] MEDS ORDERED: PERCOCET 5MG/325MG TAB PO PRN (01:45)
[2022-11-21] MEDS ORDERED: LR 1,000 ML IV SCH ×2 (01:45→03:20)
[2022-11-21] MEDS ORDERED: MORPHINE 2 MG/ML 1ML VIAL IV PRN ×2 (01:45→03:20)
[2022-11-21] MEDS ORDERED: ACETAMINOPHEN 500 MG TAB PO PRN (01:45)
[2022-11-21] MEDS ORDERED: ANUSOL HC CREAM 30GM TOP PRN (01:45)
[2022-11-21] MEDS ORDERED: OXYTOCIN DRIP 30 UNITS in IV 1 EA IV SCH (01:45)
[2022-11-21] MEDS ORDERED: RHOGAM 300MCG (1500IU) INJ IM SCH (01:45)
[2022-11-21] MEDS ORDERED: METHYLERGONOVINE MALEATE 0.2MG/ML 1ML VIAL IM PRN (01:45)
[2022-11-21] MEDS ORDERED: PERCOCET PO (01:50)
[2022-11-21] MEDS ORDERED: IBUP80TA PO (01:50)
[2022-11-21] MEDS ORDERED: COLA100C5 PO (01:50)
[2022-11-21] MEDS ORDERED: OXYTOCIN 30UNITS IN 0.9% NaCl 500ML IV BAG As Ordered ONE (02:08)
[2022-11-21 03:15] VITALS: TEMP 97.3
[2022-11-21] MEDS ORDERED: **NOTE PATIENT COMMENT** MISC XX SCH (03:20)
[2022-11-21] MEDS ORDERED: MEPERIDINE 25 MG/ML 1ML VIAL IV PRN (03:20)
[2022-11-21] MEDS ORDERED: NALBUPHINE HCL 10 MG/ML 1ML AMP IV PRN (03:20)
[2022-11-21] MEDS ORDERED: diphenhydrAMINE 50MG/ML VIAL IV PRN (03:20)
[2022-11-21] MEDS ORDERED: METOCLOPRAMIDE INJ 10MG/2ML VIAL IV PRN (03:20)
[2022-11-21] MEDS ORDERED: NALOXONE INJ 0.4MG/1ML VIAL IV PRN ×2 (03:20)
[2022-11-21 03:50] VITALS: BP 116/83; O2SAT 97
[2022-11-21 04:20] VITALS: BP 111/66; O2SAT 98
[2022-11-21] MEDS: SLF 3 ML SYR IV SCH ×3 (04:48→20:01)
[2022-11-21 06:21] VITALS: BP 108/64
[2022-11-21] MEDS: DOCUSATE SODIUM 100MG CAPSULE PO SCH ×2 (08:05→20:26)
[2022-11-21] MEDS: PRENATAL VITAMINS CHEWABLE TABLET PO SCH (08:05)
[2022-11-21] MEDS: KETOROLAC 30 MG/ML 1ML VIAL IV SCH ×3 (08:05→20:00)
[2022-11-21] MEDS: PERCOCET 5MG/325MG TAB PO PRN ×2 (12:26→21:57)
[2022-11-21 18:01] VITALS: BP 111/72; O2SAT 98
[2022-11-21 22:00] VITALS: BP 112/81; O2SAT 98
[2022-11-22 02:00] VITALS: BP 95/59
[2022-11-22 03:25] VITALS: BP 110/64
[2022-11-22] MEDS: IBUPROFEN 800 MG TAB PO SCH ×2 (03:32→10:56)
[2022-11-22 06:00] VITALS: BP 125/77
[2022-11-22 06:52] LABS: HEMATOCRIT 31.9 % (36.0-47.0); HEMOGLOBIN 10.8 g/dl (12.0-15.5); MEAN CORPUSCULAR HEMOGLOBIN 30.4 pg (27.0-33.0); MEAN CORPUSCULAR HGB CONC 33.9 g/dl (32.0-36.5); MEAN CORPUSCULAR VOLUME 89.9 fl (80.0-96.0); PLATELET COUNT, AUTOMATED 217 10^3/uL (150-450); RED BLOOD COUNT 3.55 10^6/uL (4.00-5.40); WHITE BLOOD COUNT 11.6 10^3/uL (4.0-10.0)
[2022-11-22] MEDS: PRENATAL VITAMINS CHEWABLE TABLET PO SCH (09:20)
[2022-11-22] MEDS: DOCUSATE SODIUM 100MG CAPSULE PO SCH (09:20)
[2022-11-22 09:58] VITALS: BP 113/71; O2SAT 100
[2022-11-22 14:00] VITALS: BP 130/82; O2SAT 100
[2022-11-23] MEDS ORDERED: MEASLES,MUMPS,RUBELLA VACCINE INJ (MMR-II) SC.IMMUN ONE (09:00)
== END 2022-11-22 14:30 | disposition home or self-care (01) | DRG 773 ==
LOC: M LDO 18:57 → M LDI 21:45 → M OBS 11-21 03:45
PROVIDERS: ADMIT Advanced Practice Midwife; ATTEND Advanced Practice Midwife
PROC: 10D00Z1 Extraction of Products of Conception, Low, Open Approach (ICD-10-PCS; principal; 2022-11-21 00:28)
DX: O34.211 Maternal care for low transverse scar from previous cesarean delivery (principal); Z37.0 Single live birth; Z3A.37 37 weeks gestation of pregnancy; O24.420 Gestational diabetes mellitus in childbirth, diet controlled

== ENCOUNTER → 2023-01-15 | Outpatient (REF) | payer OTHER ==
[~2023-01-15] MED LIST changes: +IBUP80TA PO; +PERCOCET PO
[2023-01-15 13:49] LABS: HEMOGLOBIN A1c 4.9 % (4.0-6.0)
[2023-01-15 13:50] LABS: BLOOD UREA NITROGEN 13 MG/DL (9-23); CALCIUM LEVEL 9.6 MG/DL (8.5-10.1); CARBON DIOXIDE LEVEL 24 MMOL/L (20-31); CHLORIDE LEVEL 107 MMOL/L (98-107); CREATININE FOR GFR 0.69 MG/DL (0.55-1.30); GLOMERULAR FILTRATION RATE > 60.0 (>60); GLUCOSE, FASTING 75 MG/DL (60-100); POTASSIUM SERUM 3.9 MMOL/L (3.5-5.1); SODIUM LEVEL 140 MMOL/L (136-145); THYROID STIMULATING HORMONE 0.706 uIU/ML (0.55-4.78)
== END ==
LOC: M LAB REF 13:06
PROVIDERS: ATTEND Nurse Practitioner Family
DX: Z86.32 Personal history of gestational diabetes (principal); R00.2 Palpitations

== ENCOUNTER → 2023-01-21 | Outpatient (CLI) | payer OTHER | LOC: M EKG 11:29 | PROVIDERS: ATTEND Nurse Practitioner Family | DX: R00.2 Palpitations (principal); R00.0 Tachycardia, unspecified ==

== ENCOUNTER → 2023-01-26 | Outpatient (CLI) | payer OTHER | LOC: M RAD 14:00 | PROVIDERS: ATTEND Nurse Practitioner Family | DX: E07.9 Disorder of thyroid, unspecified (principal) ==

== ENCOUNTER → 2023-02-03 | Outpatient (CLI) | payer OTHER | LOC: M WUC 08:28 | PROVIDERS: ATTEND Physician Assistant | DX: M79.644 Pain in right finger(s) (principal) ==

== ENCOUNTER → 2023-02-12 | Outpatient (REF) | payer OTHER ==
[2023-02-12 15:25] LABS: URIC ACID 2.9 MG/DL (3.1-7.8)
[2023-02-12 15:26] LABS: C REACTIVE PROTEIN QUANTITATIV < 0.40 MG/DL (<1.0)
[2023-02-12 15:28] LABS: RHEUMATOID FACTOR QUANT < 3.5 IU/ML (<14)
[2023-02-13 21:11] LABS: ANA (HEP2) Negative (.); CYCLIC CITRULLINATED PEPTIDE < 1 units (0-19); SSA SJOGRENS A <0.2 AI (0.0-0.9); SSB SJOGRENS B <0.2 AI (0.0-0.9)
== END ==
LOC: M LAB REF 12:22
PROVIDERS: ATTEND Nurse Practitioner Family
DX: M25.50 Pain in unspecified joint (principal)

== ENCOUNTER → 2023-05-10 | Outpatient (CLI) | payer OTHER | LOC: M RAD 10:53 | PROVIDERS: ATTEND Physician Assistant | DX: R05.9 Cough, unspecified (principal) ==

== ENCOUNTER → 2023-05-20 | Outpatient (REF) | payer OTHER ==
[~2023-05-20] MED LIST changes: +TOPI-21 PO; -TOPI-254 PO
[2023-05-20 17:24] LABS: BASO # 0.1 10^3/uL (0.0-0.2); BASO % 0.9 % (0.0-1.0); EOS # 0.2 10^3/uL (0.0-0.5); EOS % 3.1 % (0.0-3.0); HEMATOCRIT 42.5 % (36.0-47.0); HEMOGLOBIN 14.3 g/dl (12.0-15.5); LYMPH # 2.2 10^3/uL (1.5-5.0); MEAN CORPUSCULAR HEMOGLOBIN 29.3 pg (27.0-33.0); MEAN CORPUSCULAR HGB CONC 33.6 g/dl (32.0-36.5); MEAN CORPUSCULAR VOLUME 87.1 fl (80.0-96.0); MONO # 0.5 10^3/uL (0.0-0.8); MONO % 7.6 % (2.0-8.0); NEUTROPHILS # 3.5 10^3/uL (1.5-8.5); NEUTROPHILS % 54.2 % (36.0-66.0); PLATELET COUNT, AUTOMATED 337 10^3/uL (150-450); RED BLOOD COUNT 4.88 10^6/uL (4.00-5.40); WHITE BLOOD COUNT 6.5 10^3/uL (4.0-10.0)
[2023-05-20 17:29] LABS: PERCENT SATURATION 15.3 % (13.2-45.0)
[2023-05-20 17:31] LABS: FERRITIN 11.2 NG/ML (7.3-270.7)
[2023-05-20 17:55] LABS: FOLATE 10.1 NG/ML (>5.4)
== END ==
LOC: M LAB REF 16:33
PROVIDERS: ATTEND Nurse Practitioner Family
DX: R59.0 Localized enlarged lymph nodes (principal); R20.2 Paresthesia of skin; Z86.39 Personal history of other endocrine, nutritional and metabolic disease

== ENCOUNTER → 2023-12-04 | Outpatient (CLI) | payer OTHER ==
[~2023-12-04] MED LIST changes: +FLUO-365; -FLUO20CA22; +ONDA-282 PO; -ONDA4TAB6 PO; -ZOLP12.518; -ZOLP12.518 PO; +ZOLP12.535; +ZOLP12.535 PO
== END ==
LOC: M EKG 10:26
PROVIDERS: ATTEND Internal Medicine Cardiovascular Disease
DX: R00.2 Palpitations (principal)

== ENCOUNTER → 2023-12-23 | Outpatient (CLI) | payer OTHER | LOC: M CARPUL 13:41 | PROVIDERS: ATTEND Internal Medicine Cardiovascular Disease | DX: R00.2 Palpitations (principal); M35.7 Hypermobility syndrome ==

== ENCOUNTER 2024-04-02 12:39 | Inpatient (IN) | payer OTHER ==
[2024-04-02] VITALS (8 sets, daily range): BP systolic 115–137; BP diastolic 74–93; TEMP 97.6; O2SAT 99–100
[~2024-04-02] VITALS: Ht 160 cm; Wt 69.9 kg
[2024-04-02] MEDS ORDERED: FAMO10TA50 PO (12:50)
[2024-04-02] MEDS ORDERED: PROM50TA4 PO (12:51)
[2024-04-02] MEDS ORDERED: REGL5TAB2 PO (12:51)
[2024-04-02] MEDS ORDERED: LISD10CA PO (12:52)
[2024-04-02] MEDS ORDERED: HOME MED LIST COMPLETE! XX SCH (12:55)
[2024-04-02] MEDS: BETAMETHASONE SOLUSPAN 6MG/ML 5ML VIAL IM ONE (14:39)
[2024-04-02 16:14] LABS: HEMATOCRIT 30.2 % (36.0-47.0); HEMOGLOBIN 10.1 g/dl (12.0-15.5); MEAN CORPUSCULAR HGB CONC 33.4 g/dl (32.0-36.5); MEAN CORPUSCULAR VOLUME 86.8 fl (80.0-96.0); PLATELET COUNT, AUTOMATED 283 10^3/uL (150-450); RED BLOOD COUNT 3.48 10^6/uL (4.00-5.40); WHITE BLOOD COUNT 10.7 10^3/uL (4.0-10.0)
[2024-04-02] MEDS ORDERED: OXYTOCIN INJ 10UNITS/ML 1ML VIAL IM PRN (16:30)
[2024-04-02] MEDS ORDERED: METHYLERGONOVINE MALEATE 0.2MG/ML 1ML VIAL IM PRN (16:30)
[2024-04-02] MEDS ORDERED: OXYTOCIN INJ 10UNITS/ML 1ML VIAL IV PRN (16:30)
[2024-04-02] MEDS ORDERED: LIDOCAINE 1% MDV 20ML VIAL INFIL PRN (16:30)
[2024-04-02] MEDS ORDERED: CARBOPROST TROMETHAMINE 250 MCG/ML AMP IM PRN (16:30)
[2024-04-02] MEDS ORDERED: TRANEXAMIC ACID INJection 1,000 MG in NS 100 ML IV PRN (16:30)
[2024-04-02] MEDS ORDERED: OXYTOCIN DRIP 30 UNITS in IV 1 EA IV PRN ×3 (16:30)
[2024-04-02] MEDS ORDERED: METOCLOPRAMIDE INJ 10MG/2ML VIAL IV PRN (16:45)
[2024-04-02] MEDS ORDERED: BICITRA 30ML SOLN UDC PO ONE (16:45)
[2024-04-02] MEDS ORDERED: oxyCODONE 5MG TAB PO PRN (16:45)
[2024-04-02] MEDS ORDERED: ONDANSETRON 4MG 2ML VIAL IV PRN (16:45)
[2024-04-02] MEDS ORDERED: MEPERIDINE 25 MG/ML 1ML VIAL IV PRN (16:45)
[2024-04-02] MEDS ORDERED: NALOXONE INJ 0.4MG/1ML VIAL IV PRN ×2 (16:45)
[2024-04-02] MEDS ORDERED: NALBUPHINE HCL 10 MG/ML 1ML AMP IV PRN (16:45)
[2024-04-02] MEDS ORDERED: **NOTE PATIENT COMMENT** MISC XX SCH (16:45)
[2024-04-02] MEDS ORDERED: diphenhydrAMINE 50MG/ML VIAL IV PRN (16:45)
[2024-04-02] MEDS: BICITRA 30ML SOLN UDC PO ONE (16:54)
[2024-04-02] MEDS: ceFAZolin SOD 2 GM in IV 1 EA IV ONE (16:55)
[2024-04-02] MEDS: LR 1,000 ML IV SCH ×2 (16:55→22:18)
[2024-04-02] MEDS: METOCLOPRAMIDE INJ 10MG/2ML VIAL IV STA (16:58)
[2024-04-02] MEDS: LR 1,000 ML IV ONE (17:03)
[2024-04-02 17:26] LABS: HEPATITIS C VIRUS ABY INDEX 0.04 INDEX (<0.8)
[2024-04-02] MEDS: IPRATROPIUM 0.5MG/ALBUTEROL 2.5MG INH SOL UD 3ML (DUONEB) NEB ONE (17:30)
[2024-04-02] MEDS ORDERED: OXYTOCIN 30UNITS IN 0.9% NaCl 500ML IV BAG As Ordered ONE (17:55)
[2024-04-02] MEDS ORDERED: fentaNYL 100 MCG/2 ML INJECTION As Ordered ONE (17:55)
[2024-04-02] MEDS ORDERED: MORPHINE PRES-FREE INJ 10 MG/10 ML VIAL As Ordered ONE (17:55)
[2024-04-02] MEDS ORDERED: PHENYLephrine 500MCG 5ML (100MCG/ML) SYRINGE As Ordered ONE (17:55)
[2024-04-02] MEDS ORDERED: ONDANSETRON 4MG 2ML VIAL As Ordered ONE (18:04)
[2024-04-02] MEDS ORDERED: PHENYLEPHRINE 10MG/ML 1ML VIAL As Ordered ONE (18:21)
[2024-04-02 18:33] LABS: CORD GAS ABE A -9.2; CORD GAS ABE V -7.9; CORD GAS HCO3 A 20.3 MMOL/L; CORD GAS HCO3 V 19.9 MMOL/L; CORD GAS O2 SAT A 30.6 %; CORD GAS O2 SAT V 22.7 %; CORD GAS PCO2 A 58.3 mmHg; CORD GAS PCO2 V 48.8 mmHg; CORD GAS PH A 7.16 UNITS; CORD GAS PH V 7.229 UNITS; CORD GAS PO2 A 16.8 mmHg; CORD GAS PO2 V 13.1 mmHg; CORD GAS SBC A 15.7 MMOL/L; CORD GAS SBC V 16.5 MMOL/L; CORD GAS TCO2 A 22.1 MMOL/L; CORD GAS TCO2 V 21.4 MMOL/L
[2024-04-02] MEDS ORDERED: KETOROLAC 60MG 2ML VIAL As Ordered ONE (18:45)
[2024-04-02] MEDS ORDERED: RHOGAM 300MCG (1500IU) INJ IM SCH (19:20)
[2024-04-02] MEDS ORDERED: MOM 30ML SUSPENSION UDC PO PRN (19:20)
[2024-04-02] MEDS ORDERED: SIMETHICONE 80MG CHEW TAB PO PRN (19:20)
[2024-04-02] MEDS: BUDESONIDE 0.5 MG/2 ML INHALATION SUSPENSION NEB ONE (20:24)
[2024-04-02] MEDS: DOCUSATE SODIUM 100MG CAPSULE PO SCH (22:16)
[2024-04-02] MEDS: SLF 3 ML SYR IV SCH (22:16)
[2024-04-02] MEDS: KETOROLAC 30 MG/ML 1ML VIAL IV SCH (23:17)
[2024-04-03] VITALS (7 sets, daily range): BP systolic 106–136; BP diastolic 63–82; O2SAT 96–99
[2024-04-03] MEDS: ONDANSETRON 4MG 2ML VIAL IV PRN (03:26)
[2024-04-03 07:04] LABS: HEMATOCRIT 26.5 % (36.0-47.0); HEMOGLOBIN 8.9 g/dl (12.0-15.5); MEAN CORPUSCULAR HEMOGLOBIN 29.5 pg (27.0-33.0); MEAN CORPUSCULAR HGB CONC 33.6 g/dl (32.0-36.5); MEAN CORPUSCULAR VOLUME 87.7 fl (80.0-96.0); PLATELET COUNT, AUTOMATED 332 10^3/uL (150-450); RED BLOOD COUNT 3.02 10^6/uL (4.00-5.40); WHITE BLOOD COUNT 19.1 10^3/uL (4.0-10.0)
[2024-04-03] MEDS: PRENATAL VITAMINS CHEWABLE TABLET PO SCH (09:50)
[2024-04-03] MEDS: diphenhydrAMINE 50MG/ML VIAL IV PRN (09:53)
[2024-04-03] MEDS: oxyCODONE 5MG TAB PO PRN (12:48)
[2024-04-03] MEDS: ACETAMINOPHEN 500 MG TAB PO PRN (17:57)
[2024-04-03] MEDS: IBUPROFEN 800 MG TAB PO SCH (20:13)
[2024-04-04 02:45] VITALS: BP 117/70; O2SAT 98
[2024-04-04] MEDS: oxyCODONE 5MG TAB PO PRN (03:29)
[2024-04-04 05:55] VITALS: BP 110/54; O2SAT 97
[2024-04-04] MEDS ORDERED: MEASLES,MUMPS,RUBELLA VACCINE INJ (MMR-II) SC.IMMUN ONE (09:00)
[2024-04-04] MEDS: PROMETHAZINE 25 MG TAB PO PRN (09:20)
[2024-04-04 10:00] VITALS: BP 138/86; O2SAT 97
[2024-04-04] MEDS ORDERED: OXYC-517 PO (14:30)
[2024-04-04] MEDS ORDERED: FLUZONE VACCINE TRIVALENT PF(2024-25) 0.5ML SYRINGE IM.IMMUN ONE (17:00)
== END 2024-04-04 14:40 | disposition home or self-care (01) | DRG 785 ==
LOC: M LDO 12:39 → M LDI 16:25 → M OBS 21:08
PROVIDERS: ADMIT Obstetrics & Gynecology; ATTEND Obstetrics & Gynecology
PROC: 0UB70ZZ Excision of Bilateral Fallopian Tubes, Open Approach (ICD-10-PCS; 2024-04-02)
PROC: 10D00Z1 Extraction of Products of Conception, Low, Open Approach (ICD-10-PCS; principal; 2024-04-02 17:30)
DX: O34.211 Maternal care for low transverse scar from previous cesarean delivery (principal); Z37.0 Single live birth; Z3A.38 38 weeks gestation of pregnancy; Z30.2 Encounter for sterilization; O99.824 Streptococcus B carrier state complicating childbirth; O24.429 Gestational diabetes mellitus in childbirth, unspecified control

== ENCOUNTER → 2024-04-10 | Outpatient (REF) | payer OTHER ==
[~2024-04-10] MED LIST changes: +FAMO10TA50 PO; +LISD10CA PO; +OXYC-517 PO; +PROM50TA4 PO; +REGL5TAB2 PO
== END ==
LOC: M LAB REF 16:30
PROVIDERS: ATTEND Physician Assistant
DX: J02.9 Acute pharyngitis, unspecified (principal)

== ENCOUNTER → 2024-05-17 | Outpatient (CLI) | payer OTHER | LOC: M RAD 12:45 | PROVIDERS: ATTEND Physician Assistant | DX: R25.1 Tremor, unspecified (principal); R20.2 Paresthesia of skin ==

== ENCOUNTER → 2024-06-29 | Outpatient (REF) | payer OTHER ==
[2024-06-29 13:39] LABS: BASO # 0.1 10^3/uL (0.0-0.2); BASO % 1.1 % (0.0-1.0); EOS # 0.2 10^3/uL (0.0-0.5); EOS % 3.6 % (0.0-3.0); HEMATOCRIT 40.8 % (36.0-47.0); HEMOGLOBIN 13.1 g/dl (12.0-15.5); LYMPH # 2.1 10^3/uL (1.5-5.0); LYMPH % 36.8 % (24.0-44.0); MEAN CORPUSCULAR HEMOGLOBIN 26.8 pg (27.0-33.0); MEAN CORPUSCULAR HGB CONC 32.1 g/dl (32.0-36.5); MEAN CORPUSCULAR VOLUME 83.4 fl (80.0-96.0); MONO # 0.5 10^3/uL (0.0-0.8); MONO % 8.4 % (2.0-8.0); NEUTROPHILS # 2.8 10^3/uL (1.5-8.5); NEUTROPHILS % 49.9 % (36.0-66.0); PLATELET COUNT, AUTOMATED 387 10^3/uL (150-450); RED BLOOD COUNT 4.89 10^6/uL (4.00-5.40); WHITE BLOOD COUNT 5.6 10^3/uL (4.0-10.0)
[2024-06-29 14:41] LABS: BLOOD UREA NITROGEN 17 MG/DL (9-23); CARBON DIOXIDE LEVEL 26 MMOL/L (20-31); CHLORIDE LEVEL 106 MMOL/L (98-107); CREATININE FOR GFR 0.76 MG/DL (0.55-1.30); FOLATE 10.4 NG/ML (>5.4); GLOMERULAR FILTRATION RATE > 60.0 (>60); GLUCOSE, FASTING 87 MG/DL (60-100); POTASSIUM SERUM 4.6 MMOL/L (3.5-5.1); SODIUM LEVEL 141 MMOL/L (136-145); VITAMIN B12 LEVEL 459 PG/ML (211-911)
== END ==
LOC: M LAB REF 12:42
PROVIDERS: ATTEND Physician Assistant
DX: R25.1 Tremor, unspecified (principal); R25.9 Unspecified abnormal involuntary movements; R20.2 Paresthesia of skin

== ENCOUNTER → 2024-12-25 | Outpatient (REF) | payer OTHER ==
[~2024-12-25] MED LIST changes: -DRON5CAP13 PO; +DRON5CAP19 PO
[2024-12-25 19:38] LABS: ESTIMATED AVERAGE GLUCOSE 94.0 MG/DL (60-110)
== END ==
LOC: M LAB REF 17:17
PROVIDERS: ATTEND Nurse Practitioner Family
DX: F10.21 Alcohol dependence, in remission (principal); Z86.32 Personal history of gestational diabetes

== ENCOUNTER → 2025-02-28 | Outpatient (REF) | payer OTHER ==
[2025-03-06 14:53] LABS: HPV APTIMA Not Detected (Not Detected)
== END ==
LOC: M LAB REF 09:04
PROVIDERS: ATTEND Nurse Practitioner Family
DX: N89.8 Other specified noninflammatory disorders of vagina (principal)
CPT/HCPCS: 87070; 87624; G0123

== ENCOUNTER → 2025-05-09 | Outpatient (CLI) | payer OTHER ==
[2025-05-09 12:06] LABS: CALCIUM LEVEL 8.8 MG/DL (8.5-10.1); CARBON DIOXIDE LEVEL 27 MMOL/L (20-31); CHLORIDE LEVEL 107 MMOL/L (98-107); CHOLESTEROL LEVEL 217 MG/DL (<200); CHOLESTEROL RISK RATIO 5.07 (<5); CREATININE FOR GFR 0.69 MG/DL (0.55-1.30); GLOMERULAR FILTRATION RATE > 90.0 (>60); LDL CHOLESTEROL 150.6 MG/DL (<100); MAGNESIUM LEVEL 1.9 MG/DL (1.8-2.4); NON-HDL-C 174.2 MG/DL; POTASSIUM SERUM 4.1 MMOL/L (3.5-5.1); SODIUM LEVEL 141 MMOL/L (136-145); TRIGLYCERIDES LEVEL 118 MG/DL (<150)
== END ==
LOC: M WUC 10:02
PROVIDERS: ATTEND Nurse Practitioner Family
DX: F90.2 Attention-deficit hyperactivity disorder, combined type (principal)